=== PATIENT | female | born 1980 | race Two or more races ===

== ENCOUNTER 2024-05-31 09:00 | Day surgery (SDC) | payer BC, MEDICAID, SELFPAY ==
[2024-05-25 07:01] VITALS: BMI 24.3
[2024-05-25 09:00] LABS: Basophils % (Auto) 1 % (0-2.5); Eosinophils # (Auto) 0.1 Thou/mm3 (0.0-0.5); Eosinophils % (Auto) 2 % (0-10); Hematocrit 38.9 % (36.0-46.0); Hemoglobin 12.9 g/dL (12.0-16.0); Immature Granulocytes % (Auto) 0 % (0-0); Immature Granulocytes Auto 0.02 Thou/mm3 (0.00-0.00); Lymphocytes # (Auto) 2.9 Thou/mm3 (1.0-4.8); Lymphocytes % (Auto) 44 % (10-50); Mean Corpuscular HGB Conc 33.2 g/dl (31.0-37.0); Mean Corpuscular Hemoglobin 30.3 pg (25.0-35.0); Mean Corpuscular Volume 91 fL (80-100); Monocytes # (Auto) 0.5 Thou/mm3 (0.0-0.8); Monocytes % (Auto) 7 % (0-12); Neutrophils % (Auto) 46 % (37-80); Nucleated Red Blood Cell % 0 /100 WBC (0); Platelet Count 272 Thou/mm3 (140-440); Red Blood Count 4.26 Miln/mm3 (4.00-5.20); White Blood Count 6.6 Thou/mm3 (3.6-11.0)
[2024-05-25 09:08] LABS: Anion Gap 6 (7-16); BUN/Creatinine Ratio 19 Ratio (12-20); Blood Urea Nitrogen 13 mg/dL (9-23); Calcium 9.5 mg/dL (8.3-10.6); Carbon Dioxide 29.8 mMol/L (20.0-31.0); Chloride 100 mMol/L (98-107); Creatinine (Component) 0.7 mg/dL (0.6-1.3); Estimated Creatinine Clearance 85.1 mL/min (>60); Glucose 89 mg/dL (74-106); Osmolality,Calculated 271 (275-295); Potassium 3.6 mMol/L (3.4-5.1); Sodium 136 mMol/L (136-145); eGFR > 60 See Note
[2024-05-25 09:12] LABS: HCG,Qualitative Serum Negative
[2024-05-31] VITALS (8 sets, daily range): BP systolic 102–145; BP diastolic 53–94; PULSE 75–92; RESP 12–20; TEMP 36.6–37.2; O2SAT 97–100; BMI 24.4
--- NOTE | 2024-05-31 10:29 | CHAP ---
Prayed with patient before procedure.
--- NOTE | 2024-05-31 10:32 | PD.SUROPNT ---
Date of Procedure 05/31/24 Pre Op Diagnosis Incarcerated umbilical hernia Post Op Diagnosis Incarcerated umbilical hernia Procedure Primary repair of incarcerated umbilical hernia Findings An approximately 8 mm umbilical hernia defect with incarcerated preperitoneal fat Procedure Description Patient brought into the operating room in supine position. After administration of general endotracheal anesthesia, patient's abdomen prepped and draped in standard surgical manner. After administration of local anesthesia 3 cm semicircular incision was made below the umbilicus and dissection was deepened into soft tissue. The umbilicus was detached from anterior abdominal fascia. The hernia sac was identified and circumferentially dissected off surrounding tissue and abdominal fascia. The hernia sac along with incarcerated preperitoneal fat were excised. The defect was approximately 8 mm in diameter. The defect was primarily closed with interrupted sutures using 0 Prolene. The umbilicus was reattached into anterior abdominal fascia. Subcutaneous tissue closed with interrupted sutures using 2-0 Vicryl and the incision was closed with 4-0 Monocryl in subcuticular fashion. Dermabond applied. Patient tolerated procedure well. She was extubated, breathing spontaneously and without difficulty and was transferred to postanesthesia care in stable condition. Instruments, needles and sponge counts were reported to be correct x 2. Anesthesia GETA and local Pathology / specimen Other (Hernia sac) Estimated Blood Loss 2 Condition Stable Disposition PACU Surgeon Magnus Wheat MD Surgical Staff Operation Date: 05/31/24 10:45 Case Staff WATCH AND CLOCK MAKER AND REPAIRER: Patricio Burton RNputty and caulking supervisor: Pam Chicas
--- NOTE | 2024-05-31 10:34 | SUR.PHASEI ---
pt arrived to PACU via gurney with oral airway present, breathing unlabored, dressing to umbilical area with dermabond clean, dry, and intact, report from Lauro ZAMBRANO, Quintin RN and Patricio MARCELINO
--- NOTE | 2024-05-31 11:54 | SUR.PHASEII ---
pt awake, alert, able to follow commands, breathing unlabored, dressing to umbilicus with dermabond clean, dry, and intact, discharge instructions given with spouse present using telephone [employer] [place] ID#[id number] questions answered, pt discharged via wheelchair with all belongings and copies of discharge paperwork.
== END 2024-05-31 11:54 | disposition home or self-care (01) ==
PROVIDERS: PCP Family Medicine; Referring Provider Surgery; Visit Provider Surgery
PROC: (CPT 49592; principal; 2024-05-31 10:30)
DX: K42.0 Umbilical hernia with obstruction, without gangrene (principal)
CPT/HCPCS: 49592; 36415; 80048; 84703; 85025; A4217; A4649; J0131; J1100; J1885; J2405; J2704; J2765; J3010; J3490